=== PATIENT | female | born 1945 | race Caucasian/White ===

== ENCOUNTER 2017-06-29 08:04 | Outpatient (CLI) | payer OTHER | END 2017-06-29 08:11 | disposition home or self-care (01) | LOC: LAB 08:04 | DX: I10 Essential (primary) hypertension (principal); Z01.818 Encounter for other preprocedural examination; N39.0 Urinary tract infection, site not specified; R79.1 Abnormal coagulation profile ==

== ENCOUNTER → 2017-06-29 | Outpatient (CLI) | payer OTHER ==
[~2017-06-29] MED LIST: HYZAAR 100/25 T1 TAB PO; NORVASC5 MG PO; TOPROL XL25 MG PO
== END | disposition home or self-care (01) ==
LOC: RAD 09:27
DX: J80 Acute respiratory distress syndrome (principal)

== ENCOUNTER 2018-01-30 07:20 | Outpatient (CLI) | payer OTHER | END 2018-01-30 07:34 | disposition home or self-care (01) | LOC: LAB 07:20 | DX: D50.0 Iron deficiency anemia secondary to blood loss (chronic) (principal); E78.2 Mixed hyperlipidemia; N39.0 Urinary tract infection, site not specified; Z13.29 Encounter for screening for other suspected endocrine disorder; R97.0 Elevated carcinoembryonic antigen [CEA]; R97.1 Elevated cancer antigen 125 [CA 125]; R97.8 Other abnormal tumor markers; Z12.11 Encounter for screening for malignant neoplasm of colon ==

== ENCOUNTER 2018-08-05 08:00 | Outpatient (CLI) | payer OTHER | END 2018-08-05 14:55 | disposition home or self-care (01) | LOC: LAB 08:00 | DX: I11.9 Hypertensive heart disease without heart failure (principal); E78.00 Pure hypercholesterolemia, unspecified ==

== ENCOUNTER 2018-12-26 07:28 | Outpatient (CLI) | payer OTHER | END 2018-12-26 07:32 | disposition home or self-care (01) | LOC: LAB 07:28 | DX: I10 Essential (primary) hypertension (principal); E78.00 Pure hypercholesterolemia, unspecified ==

== ENCOUNTER 2019-06-07 08:09 | Outpatient (CLI) | payer OTHER | END 2019-06-07 08:23 | disposition home or self-care (01) | LOC: LAB 08:09 | DX: I11.9 Hypertensive heart disease without heart failure (principal); E78.00 Pure hypercholesterolemia, unspecified ==

== ENCOUNTER 2019-11-10 08:14 | Outpatient (CLI) | payer OTHER | END 2019-11-10 15:00 | disposition home or self-care (01) | LOC: LAB 08:14 | PROVIDERS: ATTEND Internal Medicine Cardiovascular Disease | DX: I10 Essential (primary) hypertension (principal); E78.00 Pure hypercholesterolemia, unspecified ==

== ENCOUNTER → 2020-03-15 07:44 | Outpatient (CLI) | payer OTHER | END | disposition home or self-care (01) | LOC: LAB 07:44 | PROVIDERS: ATTEND Internal Medicine Cardiovascular Disease | DX: I10 Essential (primary) hypertension (principal); E78.00 Pure hypercholesterolemia, unspecified ==

== ENCOUNTER 2020-08-26 08:25 | Outpatient (CLI) | payer OTHER | END 2020-08-26 08:30 | disposition home or self-care (01) | LOC: LAB 08:25 | PROVIDERS: ATTEND Internal Medicine Cardiovascular Disease | DX: I11.9 Hypertensive heart disease without heart failure (principal) ==

== ENCOUNTER 2021-01-24 08:00 | Outpatient (CLI) | payer OTHER | END 2021-01-24 08:30 | disposition home or self-care (01) | LOC: PPH VACUNA 08:00 | DX: Z23 Encounter for immunization (principal) ==

== ENCOUNTER 2021-03-09 07:56 | Outpatient (CLI) | payer OTHER | END 2021-03-09 07:57 | disposition home or self-care (01) | LOC: LAB 07:56 | PROVIDERS: ATTEND Internal Medicine Cardiovascular Disease | DX: I10 Essential (primary) hypertension (principal); E78.00 Pure hypercholesterolemia, unspecified ==

== ENCOUNTER 2021-08-05 08:27 | Outpatient (CLI) | payer OTHER | END 2021-08-05 08:28 | disposition home or self-care (01) | LOC: LAB 08:27 | PROVIDERS: ATTEND Internal Medicine Cardiovascular Disease | DX: I11.9 Hypertensive heart disease without heart failure (principal) ==

== ENCOUNTER 2022-01-09 07:46 | Outpatient (CLI) | payer OTHER | END 2022-01-09 07:54 | disposition home or self-care (01) | LOC: LAB 07:46 | PROVIDERS: ATTEND Internal Medicine Cardiovascular Disease | DX: I10 Essential (primary) hypertension (principal) ==

== ENCOUNTER 2022-06-13 08:04 | Outpatient (CLI) | payer OTHER | END 2022-06-13 08:05 | disposition home or self-care (01) | LOC: LAB 08:04 | PROVIDERS: ATTEND Internal Medicine Cardiovascular Disease | DX: I10 Essential (primary) hypertension (principal); E78.00 Pure hypercholesterolemia, unspecified ==

== ENCOUNTER 2022-10-24 08:32 | Outpatient (CLI) | payer OTHER | END 2022-10-24 08:37 | disposition home or self-care (01) | LOC: LAB 08:32 | PROVIDERS: ATTEND Internal Medicine Cardiovascular Disease | DX: I11.9 Hypertensive heart disease without heart failure (principal); E78.00 Pure hypercholesterolemia, unspecified ==

== ENCOUNTER → 2023-03-07 07:46 | Outpatient (CLI) | payer OTHER ==
[2023-03-07 08:22] LABS: HEMATOCRIT 39.3 % (36.0-45.00); HEMOGLOBIN 14.1 g/dL (12.0-15.00); MEAN CORPUSCULAR HEMOGLOBIN 30.8 pg (27.00-32.0); MEAN CORPUSCULAR HGB CONC 35.8 g/dl (32.0-36.0); PLATELET COUNT 237 K/uL (150-450); RED BLOOD COUNT 4.57 M/uL (4.00-6.00); RED CELL DISTRIBUTION WIDTH 12.9 % (11.5-14.5)
[2023-03-07 08:51] LABS: ALBUMIN 3.7 gm/dL (3.4-5.0); BILIRUBIN TOTAL 0.68 mg/dL (0.3-1.2); CALCIUM 9.1 mg/dL (8.5-10.1); CHOL HDL RATIO 3.1 (0-5.0); CREATININE SERUM 0.8 mg/dL (0.55-1.02); GFR 69.55; GLOBULINA 3.4 G/DL (2.4-3.5); POTASSIUM 3.54 mEq/L (3.5-5.1); TOTAL PROTEIN 7.1 gm/dL (6.4-8.2)
== END | disposition home or self-care (01) ==
LOC: LAB 07:46
PROVIDERS: ATTEND Internal Medicine Cardiovascular Disease
DX: E78.00 Pure hypercholesterolemia, unspecified (principal)

== ENCOUNTER → 2023-03-08 12:05 | Outpatient (CLI) | payer OTHER ==
[2023-03-08 12:37] LABS: URINE APPEARANCE Clear; URINE BILIRRUBIN Negative (NEGATIVE); URINE BLOOD Negative; URINE COLOR Yellow; URINE GLUCOSE Negative (NEGATIVE); URINE LEUKOCYTE Large; URINE NITRATE Negative; URINE PROTEIN Negative (NEGATIVE)
[2023-03-08 12:39] LABS: URINE BACTERIA 1683.1 uL (0.0-1933); URINE EPITHELIAL CELLS 62.9 uL (0.0-38.8); URINE RBC 17.3 uL (0.0-20.8); URINE WBC 41.2 uL (0.0-23.2)
== END | disposition home or self-care (01) ==
LOC: LAB 12:05
PROVIDERS: ATTEND Internal Medicine Cardiovascular Disease
DX: N39.0 Urinary tract infection, site not specified (principal)

== ENCOUNTER 2024-02-19 07:52 | Outpatient (CLI) | payer OTHER ==
[2024-02-19 08:39] LABS: HEMATOCRIT 39.5 % (36.0-45.00); HEMOGLOBIN 14.2 g/dL (12.0-15.00); PLATELET COUNT 248 K/uL (150-450); RED BLOOD COUNT 4.59 M/uL (4.00-6.00); RED CELL DISTRIBUTION WIDTH 13.3 % (11.5-14.5)
[2024-02-19 09:19] LABS: URINE APPEARANCE Cloudy; URINE BILIRRUBIN Negative (NEGATIVE); URINE BLOOD Trace; URINE COLOR Yellow; URINE GLUCOSE Negative (NEGATIVE); URINE KETONE Negative (NEGATIVE); URINE LEUKOCYTE Large; URINE NITRATE Negative; URINE PROTEIN Negative (NEGATIVE)
[2024-02-19 09:20] LABS: URINE BACTERIA 7665.7 uL (0.0-1933); URINE RBC 12.5 uL (0.0-20.8)
[2024-02-19 09:31] LABS: ALBUMIN 3.8 gm/dL (3.4-5.0); BILIRUBIN TOTAL 0.7 mg/dL (0.3-1.2); CALCIUM 9.1 mg/dL (8.5-10.1); CHOL HDL RATIO 3.9 (0-5.0); CREATININE SERUM 0.82 mg/dL (0.55-1.02); GFR 67.42; GLOBULINA 3.5 G/DL (2.4-3.5); POTASSIUM 3.44 mEq/L (3.5-5.1); T4 FREE 0.95 NG/ML (0.76-1.46); TOTAL PROTEIN 7.3 gm/dL (6.4-8.2); TSH 3.57 uIU/mL (0.358-3.74)
[2024-02-19 09:59] LABS: URINE CAST 0.91 uL (0.0-1.40); URINE EPITHELIAL CELLS > 201.7 uL (0.0-38.8)
== END 2024-02-19 07:58 | disposition home or self-care (01) ==
LOC: LAB 07:52
PROVIDERS: ATTEND Internal Medicine Sports Medicine
DX: D64.9 Anemia, unspecified (principal); E11.9 Type 2 diabetes mellitus without complications; E78.2 Mixed hyperlipidemia; I10 Essential (primary) hypertension; E03.9 Hypothyroidism, unspecified

== ENCOUNTER 2024-08-08 08:26 | Outpatient (CLI) | payer OTHER ==
[2024-08-08 09:27] LABS: URINE APPEARANCE Cloudy; URINE BILIRRUBIN Negative (NEGATIVE); URINE BLOOD Trace; URINE COLOR Yellow; URINE GLUCOSE Negative (NEGATIVE); URINE KETONE Negative (NEGATIVE); URINE LEUKOCYTE Large; URINE NITRATE Negative; URINE PROTEIN Negative (NEGATIVE)
[2024-08-08 09:31] LABS: URINE EPITHELIAL CELLS 168.2 uL (0.0-38.8); URINE RBC 3.5 uL (0.0-20.8); URINE WBC 917.3 uL (0.0-23.2)
[2024-08-08 09:46] LABS: HEMATOCRIT 39.3 % (36.0-45.00); HEMOGLOBIN 14.2 g/dL (12.0-15.00); MEAN CELL VOLUME 85.9 fL (80.00-100.00); MEAN CORPUSCULAR HGB CONC 36.1 g/dl (32.0-36.0); PLATELET COUNT 238 K/uL (150-450); RED BLOOD COUNT 4.58 M/uL (4.00-6.00); RED CELL DISTRIBUTION WIDTH 12.9 % (11.5-14.5)
[2024-08-08 10:03] LABS: URINE BACTERIA > 9821.5 uL (0.0-1933); URINE CAST 0.44 uL (0.0-1.40); URINE CRYSTALS FEW /HPF
[2024-08-08 10:38] LABS: ALBUMIN 3.8 gm/dL (3.4-5.0); BILIRUBIN TOTAL 0.8 mg/dL (0.3-1.2); CALCIUM 9.3 mg/dL (8.5-10.1); CHOL HDL RATIO 3.5 (0-5.0); CREATININE SERUM 0.81 mg/dL (0.55-1.02); GFR 68.21; GLOBULINA 3.5 G/DL (2.4-3.5); POTASSIUM 3.93 mEq/L (3.5-5.1); T4 FREE 1.04 NG/ML (0.76-1.46); TOTAL PROTEIN 7.3 gm/dL (6.4-8.2); TSH 3.29 uIU/mL (0.358-3.74)
== END 2024-08-08 08:31 | disposition home or self-care (01) ==
LOC: LAB 08:26
PROVIDERS: ATTEND Internal Medicine Sports Medicine
DX: D64.9 Anemia, unspecified (principal); E11.9 Type 2 diabetes mellitus without complications; E78.2 Mixed hyperlipidemia; E03.8 Other specified hypothyroidism; I10 Essential (primary) hypertension

== ENCOUNTER 2024-08-11 11:53 | Outpatient (CLI) | payer OTHER | END 2024-08-11 11:54 | disposition home or self-care (01) | LOC: LAB 11:53 | PROVIDERS: ATTEND Internal Medicine Sports Medicine | DX: N30.00 Acute cystitis without hematuria (principal) ==

== ENCOUNTER 2024-12-04 07:54 | Outpatient (CLI) | payer OTHER ==
[2024-12-04 09:18] LABS: BASO % 0.6 % (0.1-1.2); EOS # 0.26 (0.04-0.54); EOS % 4.0 % (0.7-7.0); LYMPH # 1.43 (1.18-3.74); LYMPH % 22.0 % (19.3-53.1); MEAN PLATELET VOLUME 9.40 fl (9.4-12.4); MONO # 0.57 (0.24-0.82); MONO % 8.8 % (4.7-12.5); NEUT # 4.19 (1.56-6.13); NEUT % 64.3 % (34.0-71.1); RED CELL DISTRIBUTION WIDTH 12.1 % (11.6-14.4)
[2024-12-04 09:20] LABS: URINE APPEARANCE Cloudy; URINE BILIRRUBIN Negative (NEGATIVE); URINE COLOR Yellow; URINE GLUCOSE Negative (NEGATIVE); URINE KETONE Negative (NEGATIVE); URINE LEUKOCYTE Large; URINE NITRATE Negative; URINE PROTEIN Negative (NEGATIVE); URINE UROBILINOGEN 1.0 E.U./dl
[2024-12-04 09:24] LABS: URINE BACTERIA 1918.6 uL (0.0-1933); URINE EPITHELIAL CELLS 79.0 uL (0.0-38.8); URINE RBC 7.7 uL (0.0-20.8); URINE WBC 93.6 uL (0.0-23.2)
[2024-12-04 10:08] LABS: ALT/SGPT 26.0 U/L (12-78); AST/SGOT 15.0 U/L (15-37); BILIRUBIN TOTAL 0.75 mg/dL (0.3-1.2); BUN CREA RATIO 22.0 (7.0-25.0); CHOL HDL RATIO 3.9 (0-5.0); CREATININE SERUM 0.9 mg/dL (0.55-1.02); GFR 60.4; GLOBULINA 3.5 G/DL (2.4-3.5); GLUCOSE FASTING 85.0 mg/dL (65-100); HDL 49.0 mg/dl (40-60); LDL 105.0 mg/dl (0-130); OSMOLALITY SERUM 283.0 MOSM/KG (275-295); T4 FREE 1.07 NG/ML (0.76-1.46); TSH 3.37 uIU/mL (0.358-3.74); VLDL 35.0 (0-39)
[2024-12-04 10:12] LABS: URINE CAST 0.29 uL (0.0-1.40)
[2024-12-04 10:13] LABS: URINE BLOOD TRACES
== END 2024-12-04 07:57 | disposition home or self-care (01) ==
LOC: LAB 07:54
PROVIDERS: ATTEND Internal Medicine Sports Medicine
DX: D64.9 Anemia, unspecified (principal); E11.9 Type 2 diabetes mellitus without complications; E78.2 Mixed hyperlipidemia; I10 Essential (primary) hypertension; E03.8 Other specified hypothyroidism

== ENCOUNTER 2025-04-29 08:21 | Outpatient (CLI) | payer OTHER ==
[2025-04-29 09:49] LABS: BASO % 0.7 % (0.1-1.2); EOS # 0.26 (0.04-0.54); EOS % 3.7 % (0.7-7.0); LYMPH # 1.41 (1.18-3.74); LYMPH % 19.9 % (19.3-53.1); MEAN PLATELET VOLUME 9.10 fl (9.4-12.4); MONO # 0.63 (0.24-0.82); MONO % 8.9 % (4.7-12.5); NEUT # 4.71 (1.56-6.13); NEUT % 66.4 % (34.0-71.1); RED CELL DISTRIBUTION WIDTH 12.2 % (11.6-14.4)
[2025-04-29 10:13] LABS: URINE APPEARANCE Cloudy; URINE BILIRRUBIN Negative (NEGATIVE); URINE BLOOD Small; URINE COLOR Yellow; URINE GLUCOSE Negative (NEGATIVE); URINE KETONE Negative (NEGATIVE); URINE LEUKOCYTE Large; URINE NITRATE Negative; URINE PROTEIN 30 (NEGATIVE); URINE UROBILINOGEN 1.0 E.U./dl
[2025-04-29 10:23] LABS: URINE BACTERIA MANY; URINE EPITHELIAL CELLS LOADED /HPF; URINE WBC 21-30 /hpf
[2025-04-29 10:49] LABS: ALT/SGPT 25.0 U/L (12-78); AST/SGOT 18.0 U/L (15-37); BILIRUBIN TOTAL 0.66 mg/dL (0.3-1.2); BUN CREA RATIO 23.0 (7.0-25.0); CREATININE SERUM 0.9 mg/dL (0.55-1.02); GFR 60.24; GLOBULINA 3.6 G/DL (2.4-3.5); GLUCOSE FASTING 93.0 mg/dL (65-100); HDL 47.0 mg/dl (40-60); OSMOLALITY SERUM 290.0 MOSM/KG (275-295); T4 FREE 1.06 NG/ML (0.76-1.46); TSH 2.46 uIU/mL (0.358-3.74); VLDL 41.0 (0-39)
[2025-04-29 10:50] LABS: CHOL HDL RATIO 5.3 (0-5.0); LDL 163.0 mg/dl (0-130)
== END 2025-04-29 08:26 | disposition home or self-care (01) ==
LOC: LAB 08:21
PROVIDERS: ATTEND Internal Medicine Sports Medicine
DX: D64.9 Anemia, unspecified (principal); E11.9 Type 2 diabetes mellitus without complications; E78.2 Mixed hyperlipidemia; I10 Essential (primary) hypertension; E03.8 Other specified hypothyroidism